=== PATIENT | female | born 1980 | race American Indian/Alaskan Native ===

== ENCOUNTER 2018-06-07 13:54 | Emergency (ER) | payer SELFPAY ==
[2018-06-07 14:09] VITALS: BP 111/65
== END 2018-06-07 16:04 | disposition left against medical advice (07) ==
LOC: ED 13:54
DX: O20.8 Other hemorrhage in early pregnancy (principal); Z3A.10 10 weeks gestation of pregnancy; Z53.21 Procedure and treatment not carried out due to patient leaving prior to being seen by health care provider